=== PATIENT | male | born 2000 | race Caucasian/White ===

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

== ENCOUNTER → 2019-12-12 | Outpatient (CLI) | payer OTHER ==
--- NOTE | 2019-12-13 10:39 | RAD ---
EXAM DESCRIPTION: Tibia/Fibula,Right CLINICAL HISTORY: POSSIBLE FB [id number] COMPARISON: None. TECHNIQUE: AP and lateral right FINDINGS: Enthesophyte formation is observed along the anterior tibial tubercle. No evidence of a fracture is seen. A glass foreign bodies observed in the posterior soft tissues of the calf. It measures 1.9 cm in length. IMPRESSION: A glass foreign bodies observed in the posterior soft tissues of the calf close to the marked penetration point Electronically signed by: Anthony Perdomo MD 12/13/2019 10:37 AM CDT
== END ==
LOC: RAD 16:13
PROVIDERS: ATTEND Nurse Practitioner Family
DX: M60.261 Foreign body granuloma of soft tissue, not elsewhere classified, right lower leg (principal)